=== PATIENT | male | born 1945 | race Caucasian/White ===

== ENCOUNTER 2019-01-28 13:00 | Outpatient (CLI) | payer MEDICARE, BC ==
[2019-03-13] MEDS ORDERED: ATOR10TA PO (10:49)
[2019-03-13] MEDS ORDERED: RIVA10TA PO (10:49)
[2019-03-13] MEDS ORDERED: DRON400T2 PO (10:49)
== END 2019-01-28 23:59 | disposition home or self-care (01) ==
LOC: WOU 13:00
PROVIDERS: ATTEND Surgery
DX: L89.223 Pressure ulcer of left hip, stage 3 (principal); E46 Unspecified protein-calorie malnutrition; Z68.24 Body mass index [BMI] 24.0-24.9, adult; M62.50 Muscle wasting and atrophy, not elsewhere classified, unspecified site; Z85.46 Personal history of malignant neoplasm of prostate
CPT/HCPCS: 11042; A6402; J3490

== ENCOUNTER 2019-02-04 13:25 | Outpatient (CLI) | payer MEDICARE, OTHER ==
[2019-03-13] MEDS ORDERED: RIVA10TA PO (10:49)
[2019-03-13] MEDS ORDERED: ATOR10TA PO (10:49)
[2019-03-13] MEDS ORDERED: DRON400T2 PO (10:49)
== END 2019-02-04 23:59 | disposition home or self-care (01) ==
LOC: WOU 13:25
PROVIDERS: ATTEND Surgery
DX: L89.223 Pressure ulcer of left hip, stage 3 (principal); E46 Unspecified protein-calorie malnutrition; Z68.24 Body mass index [BMI] 24.0-24.9, adult; M62.50 Muscle wasting and atrophy, not elsewhere classified, unspecified site
CPT/HCPCS: 11042

== ENCOUNTER 2019-02-11 15:38 | Outpatient (CLI) | payer MEDICARE, OTHER ==
[2019-03-13] MEDS ORDERED: ATOR10TA PO (10:49)
[2019-03-13] MEDS ORDERED: RIVA10TA PO (10:49)
[2019-03-13] MEDS ORDERED: DRON400T2 PO (10:49)
== END 2019-02-11 23:59 | disposition home or self-care (01) ==
LOC: WOU 15:38
PROVIDERS: ATTEND Surgery
DX: L89.223 Pressure ulcer of left hip, stage 3 (principal); E46 Unspecified protein-calorie malnutrition; Z68.24 Body mass index [BMI] 24.0-24.9, adult; M62.50 Muscle wasting and atrophy, not elsewhere classified, unspecified site
CPT/HCPCS: 11043; A6402

== ENCOUNTER 2019-02-25 13:10 | Outpatient (CLI) | payer MEDICARE, OTHER | END 2019-02-25 23:59 | disposition home or self-care (01) | LOC: WOU 13:10 | PROVIDERS: ATTEND Surgery | DX: L89.223 Pressure ulcer of left hip, stage 3 (principal); E46 Unspecified protein-calorie malnutrition; Z68.24 Body mass index [BMI] 24.0-24.9, adult; M62.81 Muscle weakness (generalized); M62.50 Muscle wasting and atrophy, not elsewhere classified, unspecified site | CPT/HCPCS: 11042 ==

== ENCOUNTER 2019-03-10 20:29 | Inpatient (IN) | payer MEDICARE, OTHER ==
[~2019-03-10] VITALS: Ht 182.9 cm; Wt 83.0 kg
--- NOTE | 2019-03-10 20:35 | NUR ---
TO BED 2 AMBULATORY C/O PALPITATION WHILE AT GYM AROUND 1400 HRS APPROX 18O'S. PT DENIES CP. PT WAS SEEN AND EVALUATED AT AN URGENT CARE AND WAS ADVICED TO COME TO ER FOR FURTHER EVAL. PT AAOX4 NO ACUTE DISTRESS NOTED, RESP EVEN AND UNLABORED. SKIN WARM, NONDIAPHORETIC. PLACE PT ON CARDIAC MONITORING, CONTINUOUS POX. PENDING ER MD STANTON. PT AT BEDSIDE.
--- NOTE | 2019-03-10 20:41 | NUR ---
YAZMIN CRAMER AT BEDSIDE TO [facility] FLEMING.
[2019-03-10] MEDS ORDERED: ASPIRIN 81 MG TAB.CHEW ONE (20:48)
--- NOTE | 2019-03-10 20:56 | NUR ---
PT MEDICATED ORDERED. PT AT BEDSIDE.
[2019-03-10 21:00] LABS: BASOPHILS % (AUTO) 0.3 % (0.0-2.0); EOSINOPHILS % (AUTO) 2.6 % (0.0-6.0); HEMATOCRIT 44 % (39-51); HEMOGLOBIN 14.8 g/dL (13.5-17.5); LYMPHOCYTES # (AUTO) 0.5 /CMM (0.8-4.8); LYMPHOCYTES % (AUTO) 10.6 % (20.0-44.0); MEAN CORPUSCULAR HGB CONC 34 g/dl (31.0-36.0); MEAN CORPUSCULAR VOLUME 99 fL (80-96); MONOCYTES # (AUTO) 0.5 /CMM (0.1-1.30); MONOCYTES % (AUTO) 10.4 % (2.0-12.0); NEUTROPHILS # (AUTO) 3.4 /CMM (1.8-8.9); NEUTROPHILS % (AUTO) 76.1 % (43.0-81.0); PLATELET COUNT (AUTO) 165 /CMM (150-450); RED BLOOD CELL COUNT(AUTO) 4.43 MIL/uL (4.5-6.0); WHITE BLOOD COUNT (AUTO) 4.4 K/uL (4.3-11.0)
[2019-03-10] MEDS ORDERED: ASPIRIN 81 MG TAB.CHEW PO ONE (21:00)
[2019-03-10 21:06] LABS: CALCIUM, SERUM 8.8 mg/dL (8.5-10.1); CARBON DIOXIDE 23 mmol/L (21-32); CHLORIDE 103 mmol/L (98-107); CREATININE 0.9 mg/dL (0.6-1.3); GLUCOSE 101 mg/dL (74-106); POTASSIUM 4.2 mmol/L (3.5-5.1); SODIUM SERUM 138 mmol/L (136-145); UREA NITROGEN, BLOOD 28 mg/dL (7-18)
[2019-03-10 21:12] LABS: ALANINE AMINOTRANSFERASE 27 U/L (12-78); ALBUMIN 3.3 g/dL (3.4-5.0); ALKALINE PHOSPHATASE 66 U/L (46-116); ASPARTATE AMINOTRANSFERASE 22 U/L (15-37); BILIRUBIN,DIRECT 0.2 mg/dL (0.0-0.2); BILIRUBIN,TOTAL 0.9 mg/dL (0.2-1.0); TOTAL PROTEIN, SERUM 6.5 g/dL (6.4-8.2)
--- NOTE | 2019-03-10 21:18 | NUR ---
BED ASSIGNMENT 102
--- NOTE | 2019-03-10 21:25 | NUR ---
YAZMIN CRAMER TALKING TO JOCE GAMA DNP REGARDING PT ADMISSION.
[2019-03-10] MEDS ORDERED: DILTIAZEM HCL 50 MG IV IV ONE (21:30)
--- NOTE | 2019-03-10 21:30 | NUR ---
JOCE GAMA DNP AT [facility] TO [facility]IM[facility] COLLINS
[2019-03-10] MEDS ORDERED: METO25TA6 PO (21:48)
[2019-03-10] MEDS ORDERED: MORPHINE SULFATE INJ 2 MG/ML DISP.SYRIN IV PRN (22:00)
[2019-03-10] MEDS ORDERED: ACETAMINOPHEN 325 MG TABLET PO PRN (22:00)
[2019-03-10] MEDS ORDERED: ONDANSETRON HCL/PF 4 MG/2 ML VIAL IVP PRN (22:00)
[2019-03-10] MEDS ORDERED: MAG HYDROX/AL HYDROX/SIMETH 30 ML UDC PO PRN (22:00)
[2019-03-10] MEDS ORDERED: TEMAZEPAM 15 MG CAPSULE PO PRN (22:00)
[2019-03-10] MEDS ORDERED: MAGNESIUM HYDROXIDE 30 ML UDC PO PRN (22:00)
[2019-03-10] MEDS ORDERED: HYDROCODONE/APAP 5/325MG 1 EACH TABLET PO PRN (22:00)
--- NOTE | 2019-03-10 22:05 | NUR ---
REPORT ABI TO [employer]US[employer] OPERATORTWAN LEWIS. WILL TRANSPORT PT VIA ACLS PROTOCOL.
[2019-03-10 22:30] VITALS: BP 121/79
[2019-03-10] MEDS ORDERED: NITROGLYCERIN 0.4 MG/TAB BOTTLE SL PRN (22:30)
--- NOTE | 2019-03-10 22:30 | NUR ---
SENIOR CIVIL ENGINEER NOTE PATIENT RECEIVED FROM ER WITH AT BEDSIDE. PATIENT ABLE TO WALK TO BED GAIT STEADY NO S/S OF WEAKNESS. PATIENT HAS 18 G IN L WRIST PATENT AND INTACT. PATIENTS BODY CHECK DONE, SKIN GROSSLY INTACT. PATIENT PLACED ON MONITOR HR 96 WITH AFIB. PATIENT DENIES CHEST PAIN, SOB OF BREATH. NO ACUTE S/S OF CARDIOPULMONARY DISTRESS NOTED. PATIENT AND ORIENTED TO UNIT, POC AND GOALS DISCUSSED WITH THEM. BOTH VERBALIZE UNDERSTANDING. PATIENT AND FAMILY INSTRUCTED ON USE OF CALL LIGHT. SAFETY PRECAUTIONS IN PLACE. SIDE RAILS UP X2, BED IN LOWEST LOCKED POSITION. RN WILL CONTINUE TO MONITOR FOR CHANGES.
[2019-03-11] VITALS (7 sets, daily range): BP systolic 90–106; BP diastolic 6–66
--- NOTE | 2019-03-11 06:45 | NUR ---
RECEP NOTE PATIENT TOLERATED THE NIGHT WELL. NO S/S OF ACUTE DISTRESS. PATIENT REMAINED CONTROLLED AFIB THROUGHOUT THE SHIFT. HR MOSTLY STAYING IN THE 90'S. PATIENT BREATHING EVEN AND UNLABORED. RN WILL ENDORSE POC TO AM FOR SORAYA. SAFETY MEASURES IN PLACE.
[2019-03-11 07:24] LABS: CALCIUM, SERUM 8.4 mg/dL (8.5-10.1); CARBON DIOXIDE 27 mmol/L (21-32); CHLORIDE 108 mmol/L (98-107); CREATININE 0.9 mg/dL (0.6-1.3); GLUCOSE 85 mg/dL (74-106); PHOSPHORUS 3.7 mg/dL (2.5-4.9); POTASSIUM 4.8 mmol/L (3.5-5.1); SODIUM SERUM 141 mmol/L (136-145); UREA NITROGEN, BLOOD 26 mg/dL (7-18)
[2019-03-11 07:29] LABS: CHOLESTEROL 176 mg/dL (<200); HDL CHOLESTEROL 65 mg/dL (40-60); LDL 107 mg/dL (0-99); THYROID STIMULATING HORMONE 3.216 uIU/mL (0.358-3.74); TRIGLYCERIDES 122 mg/dL (30-150)
--- NOTE | 2019-03-11 07:34 | NUR ---
CUSTOM BOW MAKER OPENING NOTES RECEIVED PT LAYING IN BED W/ HOB ELEVATED. PT IS AWAKE, ALERT AND RESPONSIVE. RESPIRATIONS ARE EVEN AND UNLABORED, NOT IN ANY ACUTE DISTRESS NOTED. PT DENIES ANY CHEST PAIN, SOB, N/V. IV SITE TO LEFT WRIST 18G INTACT, NO INFILTRATION NOTED. DRESSING KEPT CLEAN AND DRY. SAFETY MEASURES ARE IN PLACE. INSTRUCTED PT TO USE CALL LIGHT WHEN ASSISTANCE IS NEEDED, CALL LIGHT IS LEFT WITHIN REACH. WILL MONITOR THROUGHOUT SHIFT FOR CONTINUITY OF CARE.
[2019-03-11 07:37] LABS: BASOPHILS % (AUTO) 0.5 % (0.0-2.0); EOSINOPHILS % (AUTO) 3.5 % (0.0-6.0); HEMATOCRIT 42 % (39-51); HEMOGLOBIN 14.3 g/dL (13.5-17.5); LYMPHOCYTES # (AUTO) 0.5 /CMM (0.8-4.8); LYMPHOCYTES % (AUTO) 16.2 % (20.0-44.0); MEAN CORPUSCULAR HGB CONC 34 g/dl (31.0-36.0); MEAN CORPUSCULAR VOLUME 98 fL (80-96); MONOCYTES # (AUTO) 0.4 /CMM (0.1-1.30); MONOCYTES % (AUTO) 13.3 % (2.0-12.0); NEUTROPHILS # (AUTO) 2.1 /CMM (1.8-8.9); NEUTROPHILS % (AUTO) 66.5 % (43.0-81.0); PLATELET COUNT (AUTO) 165 /CMM (150-450); RED BLOOD CELL COUNT(AUTO) 4.28 MIL/uL (4.5-6.0); WHITE BLOOD COUNT (AUTO) 3.1 K/uL (4.3-11.0)
[2019-03-11] MEDS ORDERED: ASPIRIN 81 MG TAB.CHEW PO SCH (09:00)
[2019-03-11] MEDS ORDERED: METOPROLOL TARTRATE 25 MG TABLET PO SCH (09:00)
[2019-03-11] MEDS ORDERED: AMIODARONE 150 MG in IV D5W 100 ML IV ONE (10:30)
[2019-03-11] MEDS ORDERED: AMIODARONE 900 MG in IV D5W 500 ML IV PRN (10:30)
--- NOTE | 2019-03-11 10:30 | NUR ---
JAYA RN NOTES-- PT WAS SEEN AND EXAMINED BY DR. LEUNG W/ ORDERS TO UPGRADE FROM TELE TO JAYA AND START IV FLUIDS AND AMIODARONE DRIP ORDERED.
[2019-03-11] MEDS: IV NS 0.9% 1,000 ML IV PRN ×2 (11:08→21:13)
[2019-03-11] MEDS: RIVAROXABAN 10 MG TABLET PO SCH (11:16)
[2019-03-11] MEDS ORDERED: AMIODARONE 900 MG in IV D5W 482 ML IV PRN (12:00)
[2019-03-11 13:49] LABS: APPEARANCE,URINE CLEAR (CLEAR); BILIRUBIN,URINE NEGATIVE (NEGATIVE); BLOOD, URINE NEGATIVE Ery/uL (NEGATIVE); KETONES,URINE NEGATIVE (NEGATIVE); LEUKOCYTE ESTERASE ,URINE NEGATIVE (NEGATIVE); NITRITE, URINE NEGATIVE (NEGATIVE); PROTEIN,URINE NEGATIVE (NEGATIVE); UGLUCOSE NEGATIVE (NEGATIVE); UROBILINOGEN,URINE 0.2 EU/dL (0.2)
[2019-03-11 13:52] LABS: COLOR,URINE STRAW (YELLOW)
--- NOTE | 2019-03-11 18:40 | NUR ---
JAYA RN CLOSING NOTES ALL DUE MEDS GIVEN, NEEDS MET AND RENDERED. PT IS A/O X4, AFEBRILE. RESPIRATIONS ARE EVEN AND UNLABORED, NOT IN ANY ACUTE DISTRESS NOTED. PT DENIES ANY PAIN AT THIS TIME, NO C/O SOB, N/V. IV SITES TO LEFT WRIST 18 G AND LFA 22G INTACT, NO INFILTRATION NOTED. DRESSING KEPT CLEAN AND DRY. CURRENTLY ON AMIODARONE DRIP, TOLERATING WELL AND NO CHANGE IN CONDITION. REMINDED PT TO USE CALL LIGHT WHEN ASSISTANCE IS NEEDED, CALL LIGHT IS LEFT WITHIN REACH. WILL ENDORSE TO NEXT SHIFT FOR CONTINUITY OF CARE.
--- NOTE | 2019-03-11 20:49 | NUR ---
TD RN NOTES RECEIVED PT ON BED. A/O X 4. ON ROOM AIR NO RESPIRATORY DISTRESS NOTED. ON TELE MONITOR SR -ST 100HR. IV ACCESS ON LEFT WRIST 18G NS @125CC/HR AND AMIODARONE RUNNING @ .5MG/HR. HEAD OF BED ELEVATED. SIDE RAILS UP. CALL LIGHT WITHIN REACH. BED ALARM ON. WILL CONT TO MONITOR PT CLOSELY.
[2019-03-11] MEDS: ATORVASTATIN 10 MG TABLET PO SCH (21:13)
[2019-03-12] VITALS (11 sets, daily range): BP systolic 95–141; BP diastolic 41–89
[2019-03-12] MEDS: IV NS 0.9% 1,000 ML IV PRN (06:34)
--- NOTE | 2019-03-12 06:58 | NUR ---
TD RN NOTES NO ACUTE CHANGES NOTED DURING THE SHIFT, BP WNL. NO RESPIRATORY DISTRESS NOTED. WILL ENDORSE TO THE AM NURSE FOR CONTINUITY OF CARE.
--- NOTE | 2019-03-12 07:30 | NUR ---
RN NOTES RECEIVED PATIENT IN BED. ASLEEP BUT EASILY AWAKEN BY VERBL STIMULI, ORIENTED X4. ABLE TO MAKE NEEDS KNOWN. ON ROOM AIR, BREATHING UNLABORED. NO SHORTNESS OF BREATH NOTED. DENIES CHEST PAIN OR PAIN OF ANY KIND. ABLE TO MOVE ABOUT IN BED. PATIENT ON AFIB: CONTROLLED WITH HR ON THE 90 ON THE TELEMONITOR. WITH ONGOING IVF NS AT 125CC/HR AND AMIODARONE DRIP AT 0.5MG/ML, INFUSING OVER THE R WRIST G 22. ACCESS IN PLACE, DRESSING CDI. NO SING OF INFILTRATION OR INFECTION NOTED. PATIENT ENCOURAGE TO CALL FOR HELP/ASSISTANCE. CALL LIGHT PLACED WITHIN REACH. SAFETY MEASURES OBSERVED AND MAINTAINED. WILL CONTINUE TO MONITOR PATIENT CLOSELY
[2019-03-12 07:43] LABS: ALANINE AMINOTRANSFERASE 23 U/L (12-78); ALBUMIN 2.9 g/dL (3.4-5.0); ALKALINE PHOSPHATASE 57 U/L (46-116); ASPARTATE AMINOTRANSFERASE 21 U/L (15-37); BILIRUBIN,TOTAL 1.1 mg/dL (0.2-1.0); CALCIUM, SERUM 7.9 mg/dL (8.5-10.1); CARBON DIOXIDE 24 mmol/L (21-32); CHLORIDE 107 mmol/L (98-107); CREATININE 0.8 mg/dL (0.6-1.3); GLUCOSE 92 mg/dL (74-106); MAGNESIUM 1.8 mg/dL (1.8-2.4); PHOSPHORUS 3.4 mg/dL (2.5-4.9); POTASSIUM 4.1 mmol/L (3.5-5.1); SODIUM SERUM 139 mmol/L (136-145); TOTAL PROTEIN, SERUM 5.9 g/dL (6.4-8.2); UREA NITROGEN, BLOOD 15 mg/dL (7-18)
--- NOTE | 2019-03-12 10:00 | NUR ---
RN NOTES SEEN AND EXAMINED BY DR. LEUNG. WITH ORDERS TO OBTAIN CONSENT FOR CARDIOVERSION, PLACED PATIENT ON NPO. PER MD, CARDIOVERSION TO TAKE PLACE AT 1600PM TODAY AT ICU. CHARGE NURSE MADE AWARE Addendum: 03/12/19 at 1056 by ELLA FELICIANO RN OBTAINED CONSENT FROM THE PATIENT HIMSELF. ALSO INFORMED ABOUT PLAN OF CARE FOR TODAY
--- NOTE | 2019-03-12 12:00 | NUR ---
RN NOTES AMIODARONE DRIP DONE AT THIS TIME, PATIENT STILL ON AFIB WITH HR AON THE 90: CONTROLLED. ON SCHEDULE CARDIOVERSION AT 1600PM
--- NOTE | 2019-03-12 13:30 | NUR ---
RN NOTES PATIENT TRANSFERRED TO ICU VIA ACLS PROTOCOL. AWAKE. NOT ON ANY FORM OF DISTRESS. NOT ON ANY FORM OF PAIN. .
--- NOTE | 2019-03-12 16:05 | NUR ---
FLOOR STEWARD/STEWARDESS NOTES 1528 RECEIVED PT AWAKE, A/OX4. ON ROOM AIR. DENIES ANY CHEST PAIN. PT CONNECTED TO MONITOR. A.FIB, ON 90-100S. PT PREPARED FOR CARDIOVERSION. PT CONNECTED TO 02 AT 2LPM VIA NC. PADS APPLIED. CRASH CART INSIDE THE ROOM. AT BEDSIDE. DR LEUNG AND DR BOWSRE AWARE. [address] BOWSER. CARDIOVERSION DONE BY DR LEUNG. PT CONVERTED TO SINUS RHYTHM. WILL CLOSELY MONITOR. 1600 PT AWAKE, A/OX4. ABLE TO FOLLOW COMMANDS. DENIES ANY PAIN. NO SOB NOTED. PT ON ROOM AIR AT 100%. VS WNL. WILL CONTINUE TO MONITOR.
--- NOTE | 2019-03-12 17:00 | NUR ---
EMBEDDED FIRMWARE DEVELOPER NOTES PT TRANSFERRED BACK TO ROOM 102. PT A/OX4. ON ROOM AIR. NO RESPIRATORY DISTRESS NOTED. DENIES ANY PAIN. VS WNL. PT SINUS RHYTHM ON MONITOR. ELLA, RN TOOK OVER PT'S CARE.
[2019-03-12] MEDS: DRONEDARONE HYDROCHLORIDE 400 MG TABLET PO SCH (18:39)
[2019-03-12] MEDS: RIVAROXABAN 10 MG TABLET PO SCH (18:41)
--- NOTE | 2019-03-12 19:23 | NUR ---
RN NOTES PATIENT BACK FROM ICU. AWAKE, ALERT AND ORIENTED X4. NOT ON ANY FORM OF DISTRESS. VITAL SIGNS FOLLOWS 113/66, SINUS RHYTHM ON THE MONITOR WITH HR AT 58 AT THIS TIME. PATIENT COMFORTABLE AT THIS TIME. ENCOURAGE TO CALL FOR HELP AND ASSISTANCE, CALL LIGHT WITHIN REACH
--- NOTE | 2019-03-12 19:28 | NUR ---
RN NOTES ENDORSED FOR CONTINUITY OF CARE. NOT ON ANY FORM OF DISTRESS. NO ACUTE CHANGES WITHIN THE SHIFT. ALL NURSING NEEDS ATTENDED AND MET. SAFETY MEASURES IN PLACE. CALL LIGHT WITHIN REACH
--- NOTE | 2019-03-12 19:30 | NUR ---
NECK CUTTER NOTE: RECEIVED PT ON BED ALERT AND ORIENTED X3. ABLE TO MAKE NEEDS KNOWN. NO APPARENT DISTRESS NOTED. DENIES PAIN AND DISCOMFORT AT THIS TIME. ON ROOM AIR, BREATHING EVEN AND UNLABORED WITH NORMAL RESPIRATIONS. SINUS RHYTHM ON TELE MONITOR HR 71 BPM. IV ON RIGHT WRIST #22 INTACT AND PATENT, FLUSHING WELL. KEPT CLEAN, DRY AND COMFORTABLE. CALL LIGHT PLACED WITHIN REACH. SIDE RAILS UP X3. BED LOCKED AND IN LOWEST POSITION. WILL CONTINUE TO MONITOR PT.
[2019-03-12] MEDS: ATORVASTATIN 10 MG TABLET PO SCH (21:08)
[2019-03-13] VITALS: BP 115/61
[2019-03-13 04:00] VITALS: BP 103/59
[2019-03-13 06:36] LABS: BASOPHILS % (AUTO) 0.3 % (0.0-2.0); EOSINOPHILS % (AUTO) 3.1 % (0.0-6.0); HEMATOCRIT 38 % (39-51); HEMOGLOBIN 12.8 g/dL (13.5-17.5); LYMPHOCYTES # (AUTO) 0.4 /CMM (0.8-4.8); MEAN CORPUSCULAR HGB CONC 34 g/dl (31.0-36.0); MEAN CORPUSCULAR VOLUME 99 fL (80-96); MONOCYTES # (AUTO) 0.5 /CMM (0.1-1.30); NEUTROPHILS # (AUTO) 2.9 /CMM (1.8-8.9); NEUTROPHILS % (AUTO) 72.6 % (43.0-81.0); PLATELET COUNT (AUTO) 148 /CMM (150-450); RED BLOOD CELL COUNT(AUTO) 3.86 MIL/uL (4.5-6.0)
[2019-03-13 06:39] LABS: ALANINE AMINOTRANSFERASE 23 U/L (12-78); ALBUMIN 2.8 g/dL (3.4-5.0); ALKALINE PHOSPHATASE 54 U/L (46-116); ASPARTATE AMINOTRANSFERASE 19 U/L (15-37); BILIRUBIN,TOTAL 1.3 mg/dL (0.2-1.0); CALCIUM, SERUM 8.1 mg/dL (8.5-10.1); CARBON DIOXIDE 28 mmol/L (21-32); CHLORIDE 106 mmol/L (98-107); CREATININE 0.8 mg/dL (0.6-1.3); GLUCOSE 89 mg/dL (74-106); MAGNESIUM 1.8 mg/dL (1.8-2.4); POTASSIUM 4.6 mmol/L (3.5-5.1); SODIUM SERUM 140 mmol/L (136-145); TOTAL PROTEIN, SERUM 5.6 g/dL (6.4-8.2); UREA NITROGEN, BLOOD 15 mg/dL (7-18)
--- NOTE | 2019-03-13 06:51 | NUR ---
HITTING COACH NOTE: NO CHANGES NOTED THROUGHOUT THE SHIFT. NO ACUTE DISTRESS NOTED. NO COMPLAINTS OF PAIN OR DISCOMFORT AT THIS TIME. ON ROOM AIR, BREATHING EVEN AND UNLABORED WITH NORMAL RESPIRATIONS. ON TELE MONITOR SINUS RHYTHM 62BPM. KEPT CLEAN, DRY AND COMFORTABLE. CALL LIGHT PLACED WITHIN REACH. SAFETY AND FALL PRECAUTIONS OBSERVED AND MAINTAINED. WILL ENDORSE TO DAY SHIFT RN FOR CONTINUITY OF CARE.
[2019-03-13 08:00] VITALS: BP 113/75
--- NOTE | 2019-03-13 08:12 | NUR ---
BRUSH OPERATOR OPENING NOTE: RECEIVED PT IN BED AWAKE. A/O X 4, NO SOB OR ACUTE DISTRESS NOTED. DENIES PAIN AT THIS TIME. ON ROOM AIR, BREATHING EVEN AND UNLABORED. SINUS RHYTHM ON TELE MONITOR HR 74. R WRIST IV #22 INTACT AND PATENT. PATIENT CLEAN, DRY AND COMFORTABLE. CALL LIGHT PLACED WITHIN REACH. SIDE RAILS UP X3. BED LOCKED AND IN LOWEST POSITION. WILL CONTINUE TO MONITOR PT.
[2019-03-13] MEDS: DRONEDARONE HYDROCHLORIDE 400 MG TABLET PO SCH (08:46)
[2019-03-13] MEDS ORDERED: ATOR10TA PO (10:49)
[2019-03-13] MEDS ORDERED: DRON400T2 PO (10:49)
[2019-03-13] MEDS ORDERED: RIVA10TA PO (10:49)
--- NOTE | 2019-03-13 12:56 | NUR ---
SPOOLING MACHINE OPERATORWELFARE SPECIALIST NOTE: PT DISCHARGED AT 1225 HRS. PATIENT AT SIDE DURING DISCHARGE. PATIENT A/O X 4, AMBULATORY, NO SOB OR ACUTE DISTRESS NOTED. DENIES PAIN. ON ROOM AIR, BREATHING EVEN AND UNLABORED. R WRIST IV #22 REMOVED. R FOREARM IV REMOVED. ALL DISCHARGE PAPERWORK GIVEN TO PATIENT. EDUCATION GIVEN TO PATIENT AND . MEDICATIONS REVIEWED. TELE MONITOR REMOVED. BELONGINGS LIST COMPLETED. PATIENT LEFT AMBULATING WITH AT SIDE. DISCHARGE COMPLETED WITHOUT INCIDENT.
== END 2019-03-13 12:34 | disposition home or self-care (01) | DRG 309 ==
LOC: ER 20:32 → TELE1 21:19 → TELE-TD 03-11 14:58 → ICU 03-12 15:24 → TELE-TD 03-12 17:11 → TELE1 03-12 17:48 → MEDSG1 03-13 09:19
PROVIDERS: ADMIT Nurse Practitioner Acute Care; ATTEND Nurse Practitioner Acute Care
PROC: 5A2204Z Restoration of Cardiac Rhythm, Single (ICD-10-PCS; principal; 2019-03-12)
DX: I48.0 Paroxysmal atrial fibrillation (principal); D68.59 Other primary thrombophilia; N17.9 Acute kidney failure, unspecified; E86.0 Dehydration; I10 Essential (primary) hypertension; Z85.46 Personal history of malignant neoplasm of prostate; E78.5 Hyperlipidemia, unspecified; I95.9 Hypotension, unspecified
CPT/HCPCS: 36415; 71045-TC; 80048-TC; 80053-TC; 80061-TC; 80076-TC; 81000-TC; 83735-TC; 84100-TC; 84443-TC; 84484-TC; 85025-TC; 87081-TC; 93307-TC; G0378; J0282; J3490; J7030; J7050; J7060

== ENCOUNTER 2019-03-18 13:50 | Outpatient (CLI) | payer MEDICARE, OTHER ==
[~2019-03-18 13:50] MED LIST: ATOR10TA PO; DRON400T2 PO; RIVA10TA PO
== END 2019-03-18 23:59 | disposition home or self-care (01) ==
LOC: WOU 13:50
PROVIDERS: ATTEND Surgery
DX: L89.223 Pressure ulcer of left hip, stage 3 (principal); E46 Unspecified protein-calorie malnutrition; Z68.24 Body mass index [BMI] 24.0-24.9, adult; M62.50 Muscle wasting and atrophy, not elsewhere classified, unspecified site
CPT/HCPCS: 11042

== ENCOUNTER 2019-07-15 12:10 | Outpatient (CLI) | payer MEDICARE, BC | END 2019-07-15 23:59 | disposition home or self-care (01) | LOC: WOU 12:10 | PROVIDERS: ATTEND Surgery | DX: T22.222A Burn of second degree of left elbow, initial encounter (principal); X16.XXXA Contact with hot heating appliances, radiators and pipes, initial encounter; Y92.89 Other specified places as the place of occurrence of the external cause; T31.0 Burns involving less than 10% of body surface; M62.50 Muscle wasting and atrophy, not elsewhere classified, unspecified site; Z79.01 Long term (current) use of anticoagulants | CPT/HCPCS: G0463 ==

== ENCOUNTER 2019-11-11 09:00 | Outpatient (CLI) | payer MEDICARE, BC | END 2019-11-11 23:59 | disposition home or self-care (01) | LOC: WOU 09:00 | PROVIDERS: ATTEND Surgery | DX: T24.312A Burn of third degree of left thigh, initial encounter (principal); T31.0 Burns involving less than 10% of body surface; L03.116 Cellulitis of left lower limb; M62.50 Muscle wasting and atrophy, not elsewhere classified, unspecified site; Z79.01 Long term (current) use of anticoagulants | CPT/HCPCS: 87070-TC; 87075-TC; 87186-TC ==

== ENCOUNTER 2019-11-14 11:45 | Outpatient (CLI) | payer MEDICARE, BC | END 2019-11-14 23:59 | disposition home or self-care (01) | LOC: WOU 11:45 | PROVIDERS: ATTEND Surgery | DX: T24.312A Burn of third degree of left thigh, initial encounter (principal); T31.0 Burns involving less than 10% of body surface; L03.116 Cellulitis of left lower limb; M62.50 Muscle wasting and atrophy, not elsewhere classified, unspecified site; Z79.01 Long term (current) use of anticoagulants ==

== ENCOUNTER 2019-11-18 10:35 | Outpatient (CLI) | payer MEDICARE, BC | END 2019-11-18 23:59 | disposition home or self-care (01) | LOC: WOU 10:35 | PROVIDERS: ATTEND Surgery | DX: T24.312A Burn of third degree of left thigh, initial encounter (principal); T31.0 Burns involving less than 10% of body surface; L03.116 Cellulitis of left lower limb; M19.90 Unspecified osteoarthritis, unspecified site; Z85.46 Personal history of malignant neoplasm of prostate; Z79.01 Long term (current) use of anticoagulants ==

== ENCOUNTER 2020-07-29 10:00 | Outpatient (CLI) | payer MEDICARE, BC | END 2020-07-29 23:59 | disposition home or self-care (01) | LOC: WOU 10:00 | PROVIDERS: ATTEND Specialist | DX: T24.212A Burn of second degree of left thigh, initial encounter (principal); T31.0 Burns involving less than 10% of body surface; X16.XXXA Contact with hot heating appliances, radiators and pipes, initial encounter; Y93.89 Activity, other specified; Y92.89 Other specified places as the place of occurrence of the external cause; Z80.42 Family history of malignant neoplasm of prostate; M16.12 Unilateral primary osteoarthritis, left hip | CPT/HCPCS: A6209; G0463 ==

== ENCOUNTER 2020-08-05 10:00 | Outpatient (CLI) | payer MEDICARE, BC | END 2020-08-05 23:59 | disposition home or self-care (01) | LOC: WOU 10:00 | PROVIDERS: ATTEND Specialist | DX: T24.212D Burn of second degree of left thigh, subsequent encounter (principal); T31.0 Burns involving less than 10% of body surface; X16.XXXD Contact with hot heating appliances, radiators and pipes, subsequent encounter; Z85.46 Personal history of malignant neoplasm of prostate; M16.12 Unilateral primary osteoarthritis, left hip | CPT/HCPCS: A6209; G0463; 11042 ==

== ENCOUNTER 2023-06-19 11:56 | Emergency (ER) | payer BC, MEDICARE ==
[~2023-06-19] VITALS: Ht 175.3 cm; Wt 79.8 kg
[~2023-06-19 11:56] MED LIST changes: -DRON400T2 PO; +DRON400T6 PO
[2023-06-19] MEDS ORDERED: ACET-2605 PO (13:34)
[2023-06-19] MEDS ORDERED: IBUP-1955 PO (13:34)
[2023-06-19 14:00] VITALS: BP 136/77; TEMP 98.1; O2SAT 100
== END 2023-06-19 14:01 | disposition home or self-care (01) ==
LOC: ER 12:30
DX: M25.561 Pain in right knee (principal); M25.571 Pain in right ankle and joints of right foot; W18.30XA Fall on same level, unspecified, initial encounter; Y93.89 Activity, other specified; Y92.89 Other specified places as the place of occurrence of the external cause; Y99.8 Other external cause status
CPT/HCPCS: 73564-TC; 73610-TC

== ENCOUNTER 2024-08-26 11:34 | Inpatient (IN) | payer MEDICARE ==
[~2024-08-26] VITALS: Ht 175.3 cm; Wt 81.2 kg
[~2024-08-26 11:34] MED LIST changes: +ACET-2605 PO; +IBUP-1955 PO
[2024-08-26] MEDS ORDERED: NAPR-1009 PO (12:44)
[2024-08-26] MEDS ORDERED: HYDR-4303 PO (12:44)
[2024-08-26 12:52] LABS: BASOPHILS % (AUTO) 0.3 % (0.0-2.0); EOSINOPHILS % (AUTO) 0.1 % (0.0-6.0); HEMATOCRIT 45 % (39-51); HEMOGLOBIN 15.3 g/dL (13.5-17.5); LYMPHOCYTES # (AUTO) 0.4 K/uL (0.8-4.8); LYMPHOCYTES % (AUTO) 2.6 % (20.0-44.0); MEAN CORPUSCULAR HEMOGLOBIN 34 PG (26.0-33.0); MEAN CORPUSCULAR HGB CONC 34 g/dl (31.0-36.0); MEAN CORPUSCULAR VOLUME 102 fL (80-96); MONOCYTES # (AUTO) 0.8 K/uL (0.1-1.30); MONOCYTES % (AUTO) 5.3 % (2.0-12.0); NEUTROPHILS # (AUTO) 13.9 K/uL (1.8-8.9); NEUTROPHILS % (AUTO) 91.7 % (43.0-81.0); PLATELET COUNT (AUTO) 236 K/uL (150-450); RED BLOOD CELL COUNT(AUTO) 4.43 MIL/uL (4.5-6.0); RED CELL DISTRIBUTION WIDTH 16.2 % (11.5-15.0); WHITE BLOOD COUNT (AUTO) 15.1 K/uL (4.3-11.0)
[2024-08-26 13:00] VITALS: BP 126/72; TEMP 98.2; O2SAT 96
[2024-08-26] MEDS: CEFTRIAXONE 1GM BAG (ER ONLY) 1 GM/50 ML PIGGYBACK IV ONE (13:20)
[2024-08-26] MEDS ORDERED: CEFTRIAXONE 1GM BAG (ER ONLY) 50 ML IV ONE (13:21)
[2024-08-26 13:39] LABS: CALCIUM, SERUM 9.3 mg/dL (8.5-10.1); CREATININE 1.2 mg/dL (0.6-1.3); POTASSIUM 4.2 mmol/L (3.5-5.1)
[2024-08-26 14:18] LABS: APPEARANCE,URINE SLIGHTLY CLOUDY (CLEAR); BILIRUBIN,URINE NEGATIVE (NEGATIVE); BLOOD, URINE 1+ Ery/uL (NEGATIVE); COLOR,URINE YELLOW (YELLOW); KETONES,URINE TRACE mg/dL (NEGATIVE); LEUKOCYTE ESTERASE ,URINE 2+ (NEGATIVE); NITRITE, URINE POSITIVE (NEGATIVE); PH,URINE 5.5 (5.0-8.0); PROTEIN,URINE 1+ mg/dl (NEGATIVE); UGLUCOSE TRACE mg/dL (NEGATIVE)
[2024-08-26 14:28] LABS: ADD URINE CULTURE YES; BACTERIA,URINE Few /HPF (None Seen); SQUAMOUS EPITHELIAL CELL,UR None Seen /HPF (None Seen); URINE AMORPHOUS URATE Few /HPF (None Seen); WBC,URINE 81-100 /HPF (0-3)
[2024-08-26 14:35] VITALS: BP 118/66; TEMP 98; O2SAT 98
[2024-08-26 16:00] VITALS: BP 134/76; TEMP 98; O2SAT 98
[2024-08-26] MEDS ORDERED: ENOXAPARIN SODIUM 40 MG/0.4 ML DISP.SYRIN SQ SCH (17:30)
[2024-08-26] MEDS ORDERED: ONDANSETRON HCL/PF 4 MG/2 ML VIAL IVP PRN (17:30)
[2024-08-26] MEDS: ENOXAPARIN SODIUM 40 MG/0.4 ML DISP.SYRIN SQ SCH (17:48)
[2024-08-26] MEDS: IV NS 0.9% 1,000 ML IV PRN (17:50)
[2024-08-26 20:00] VITALS: BP 117/65; TEMP 98.2; O2SAT 96
[2024-08-26 22:57] VITALS: BP 117/65; TEMP 98.2; O2SAT 96
[2024-08-27] MEDS: HYDROCODONE/APAP 5/325MG TABLET PO PRN (03:46)
[2024-08-27 04:42] VITALS: BP 117/65; TEMP 98.2; O2SAT 96
[2024-08-27] MEDS: IBUPROFEN 600 MG TABLET PO ONE (05:26)
[2024-08-27 07:32] LABS: BASOPHILS % (AUTO) 0.2 % (0.0-2.0); CALCIUM, SERUM 8.1 mg/dL (8.5-10.1); CREATININE 0.8 mg/dL (0.6-1.3); EOSINOPHILS % (AUTO) 0.4 % (0.0-6.0); HEMATOCRIT 36 % (39-51); HEMOGLOBIN 12.3 g/dL (13.5-17.5); LYMPHOCYTES # (AUTO) 0.2 K/uL (0.8-4.8); LYMPHOCYTES % (AUTO) 1.3 % (20.0-44.0); MEAN CORPUSCULAR HEMOGLOBIN 35 PG (26.0-33.0); MEAN CORPUSCULAR HGB CONC 34 g/dl (31.0-36.0); MEAN CORPUSCULAR VOLUME 102 fL (80-96); MONOCYTES # (AUTO) 0.5 K/uL (0.1-1.30); MONOCYTES % (AUTO) 4.4 % (2.0-12.0); NEUTROPHILS # (AUTO) 11.3 K/uL (1.8-8.9); NEUTROPHILS % (AUTO) 93.7 % (43.0-81.0); PHOSPHORUS 2.1 mg/dL (2.5-4.9); PLATELET COUNT (AUTO) 153 K/uL (150-450); RED BLOOD CELL COUNT(AUTO) 3.55 MIL/uL (4.5-6.0); RED CELL DISTRIBUTION WIDTH 15.6 % (11.5-15.0); WHITE BLOOD COUNT (AUTO) 12.1 K/uL (4.3-11.0)
[2024-08-27 08:00] VITALS: BP 122/62; TEMP 97.9; O2SAT 97
[2024-08-27] MEDS: CEFTRIAXONE 1 G in IV D5W 50 ML IV SCH (14:08)
[2024-08-27] MEDS: K PHOS NEUTRAL 250 MG TABLET PO ONE (15:17)
[2024-08-27 16:00] VITALS: BP 131/71; TEMP 98.1; O2SAT 96
[2024-08-27] MEDS: ACETAMINOPHEN 325 MG TABLET PO PRN (19:15)
[2024-08-27 20:00] VITALS: BP 106/40; TEMP 97.3; O2SAT 96
[2024-08-27 21:06] VITALS: BP 127/61; TEMP 100.4; O2SAT 95
[2024-08-28 06:20] LABS: BASOPHILS % (AUTO) 0.1 % (0.0-2.0); EOSINOPHILS % (AUTO) 0.1 % (0.0-6.0); HEMATOCRIT 36 % (39-51); HEMOGLOBIN 12.1 g/dL (13.5-17.5); LYMPHOCYTES # (AUTO) 0.4 K/uL (0.8-4.8); LYMPHOCYTES % (AUTO) 3.3 % (20.0-44.0); MEAN CORPUSCULAR HEMOGLOBIN 35 PG (26.0-33.0); MEAN CORPUSCULAR HGB CONC 34 g/dl (31.0-36.0); MEAN CORPUSCULAR VOLUME 102 fL (80-96); MONOCYTES # (AUTO) 1.1 K/uL (0.1-1.30); MONOCYTES % (AUTO) 9.4 % (2.0-12.0); NEUTROPHILS # (AUTO) 10.6 K/uL (1.8-8.9); NEUTROPHILS % (AUTO) 87.1 % (43.0-81.0); PLATELET COUNT (AUTO) 131 K/uL (150-450); RED CELL DISTRIBUTION WIDTH 15.4 % (11.5-15.0); WHITE BLOOD COUNT (AUTO) 12.1 K/uL (4.3-11.0)
[2024-08-28 06:42] LABS: ALBUMIN 2.2 g/dL (3.4-5.0); CALCIUM, SERUM 7.8 mg/dL (8.5-10.1); CREATININE 0.7 mg/dL (0.6-1.3); MAGNESIUM 1.8 mg/dL (1.8-2.4); PHOSPHORUS 2.1 mg/dL (2.5-4.9); POTASSIUM 3.5 mmol/L (3.5-5.1)
[2024-08-28 07:00] VITALS: BP 114/55; TEMP 97.9; O2SAT 94
[2024-08-28] MEDS: K PHOS NEUTRAL 250 MG TABLET PO ONE (15:37)
[2024-08-28 16:00] VITALS: BP 129/71; TEMP 98.4; O2SAT 95
[2024-08-28 20:00] VITALS: BP 139/68; TEMP 98.8; O2SAT 96
[2024-08-29 07:54] LABS: EOSINOPHILS % (AUTO) 0.3 % (0.0-6.0); HEMATOCRIT 39 % (39-51); HEMOGLOBIN 13.3 g/dL (13.5-17.5); LYMPHOCYTES # (AUTO) 0.4 K/uL (0.8-4.8); LYMPHOCYTES % (AUTO) 3.6 % (20.0-44.0); MEAN CORPUSCULAR HEMOGLOBIN 35 PG (26.0-33.0); MEAN CORPUSCULAR HGB CONC 34 g/dl (31.0-36.0); MEAN CORPUSCULAR VOLUME 102 fL (80-96); MONOCYTES # (AUTO) 1.1 K/uL (0.1-1.30); MONOCYTES % (AUTO) 9.1 % (2.0-12.0); NEUTROPHILS # (AUTO) 10.7 K/uL (1.8-8.9); PLATELET COUNT (AUTO) 173 K/uL (150-450); RED BLOOD CELL COUNT(AUTO) 3.87 MIL/uL (4.5-6.0); RED CELL DISTRIBUTION WIDTH 15.6 % (11.5-15.0); WHITE BLOOD COUNT (AUTO) 12.3 K/uL (4.3-11.0)
[2024-08-29 08:24] LABS: CALCIUM, SERUM 8.1 mg/dL (8.5-10.1); CREATININE 0.7 mg/dL (0.6-1.3); POTASSIUM 3.6 mmol/L (3.5-5.1)
[2024-08-29 20:00] VITALS: BP 133/79; TEMP 98.1; O2SAT 97
[2024-08-30 07:00] VITALS: BP 144/99; TEMP 97.9; O2SAT 96
[2024-08-30] MEDS ORDERED: CIPR-263 PO (10:03)
[2024-08-30] MEDS: ENSURE ENLIVE 237 ML LIQUID (VANILLA) PO SCH (14:53)
[2024-08-30 16:00] VITALS: BP 132/80; TEMP 97.2; O2SAT 94
== END 2024-08-30 17:30 | disposition home health service (06) | DRG 699 ==
LOC: ER 11:56 → MEDSG1 13:38 → MED 14:40
PROVIDERS: ADMIT Nurse Practitioner Acute Care; ATTEND Nurse Practitioner Family
PROC: 0T7D8ZZ Dilation of Urethra, Via Natural or Artificial Opening Endoscopic (ICD-10-PCS; principal; 2024-08-29)
DX: T83.591A Infection and inflammatory reaction due to implanted urinary sphincter, initial encounter (principal); N39.0 Urinary tract infection, site not specified; N32.0 Bladder-neck obstruction; I48.91 Unspecified atrial fibrillation; I10 Essential (primary) hypertension; E86.0 Dehydration; Z85.46 Personal history of malignant neoplasm of prostate; R33.8 Other retention of urine; T83.191A Other mechanical complication of implanted urinary sphincter, initial encounter; N39.3 Stress incontinence (female) (male); Y83.8 Other surgical procedures as the cause of abnormal reaction of the patient, or of later complication, without mention of misadventure at the time of the procedure; Y92.009 Unspecified place in unspecified non-institutional (private) residence as the place of occurrence of the external cause; Z90.79 Acquired absence of other genital organ(s); N52.9 Male erectile dysfunction, unspecified; Y73.8 Miscellaneous gastroenterology and urology devices associated with adverse incidents, not elsewhere classified; B95.2 Enterococcus as the cause of diseases classified elsewhere
CPT/HCPCS: 36415; 80048-TC; 81001; 82040-TC; 83735-TC; 84100-TC; 85025-TC; 87086-TC; 97110-TC; 97112-TC; 97116-TC; 97530-TC; A4223; G0378; J0696; J1650; J7030; J7060